=== PATIENT | male | born 1965 | race Caucasian/White ===

== ENCOUNTER → 2017-12-16 | Outpatient (CLI) | payer OTHER, MEDICAID ==
--- NOTE | 2017-12-16 15:53 | MRI ---
STUDY: MRI OF THE LUMBAR SPINE HISTORY: Disc degeneration. Low back pain. Comparison: None. Technique: Multiplanar multi-sequence MRI of the lumbar spine was performed. Sagittal T1, sagittal T 2, and STIR images, axial T1, and axial T2 images were obtained. Findings: Sagittal images: Vertebral body heights are within normal limits. There is grade 1 anterolisthesis of L5 on S1. Marrow signal is age-appropriate. There is degenerative endplate change identified, with Modic type 1 change at S1. There is multilevel degenerative disc disease, most notable at L5/S1. The conus medullaris is normal in appearance terminating at the level of L1. Axial images: T12 -- L1: Normal. L1 -- L2: There is mild bilateral facet arthropathy and ligamentum flavum infolding. The central nathaly l neural foramina are adequate. L2 -- L3: There is bilateral facet arthropathy and ligamentum flavum infolding. The central canal and neural foramina are adequate. L3 -- L4: There is a shallow disc bulge, bilateral facet arthropathy and ligamentum flavum infolding. The central canal and neural foramina are adequate. L4 -- L5: There is a central disc bulge, slightly asymmetric to the right of midline. This results in effacement of the ventral thecal sac and possible contact with the traversing L5 nerve root in the r ight lateral recess the central canal remains adequate. There is mild right neural foraminal stenosis . Left neural foramen is adequate. L5 -- S1: There is a broad-based disc bulge, bilateral facet arthropathy and ligamentum flavum infold ing. There is grade 1 anterolisthesis of L5 on S1. The central canal remains adequate. There is mild right neural foraminal stenosis. There is severe left neural foraminal stenosis. IMPRESSION: 1. Multilevel lumbar spondylosis, with grade 1 anterolisthesis of L5 on S1. 2. Disc bulge at L4/5, likely contacting the traversing left L5 nerve root within the left lateral re cess. 3. No significant spinal stenosis. 4. Multilevel neural foraminal stenosis, most severe at L5/S1 on the left. Reported By:
== END | disposition home or self-care (01) | DRG 552 ==
LOC: RAD 13:00
PROVIDERS: ATTEND Nurse Practitioner Family
DX: M51.36 Other intervertebral disc degeneration, lumbar region (principal); M47.896 Other spondylosis, lumbar region; M51.26 Other intervertebral disc displacement, lumbar region; M48.07 Spinal stenosis, lumbosacral region
CPT/HCPCS: 72148